=== PATIENT | male | born 1995 | race African-American/Black ===

== ENCOUNTER 2017-04-04 14:36 | Inpatient (IN) | payer OTHER ==
--- NOTE | ~2017-04-04 | DS ---
Unit #: [id number] #: [id number] Patient: [facility] [id number] [address] [place] [address] [id number] I MR#: [id number] NAME: JOHN RAUSCH ROOM: [facility] Age: 21 Sex: M Admission Date: 04/04/2017 : 1995 Discharge Date: 04/08/2017 Attending Physician: Chaz Anaya M.D. Primary Care Physician: Primary Care Physician No DISCHARGE SUMMARY IDENTIFYING DATA Mr. Rausch 21-year old, single, male, who is a resident of [place], [place] and was brought to the hospital by his mother. DISCHARGE DIAGNOSES Psychiatric: Major depressive disorder, recurrent, moderate, without psychotic features; alcohol dependence, moderate. Medical: None. Stressors: Moderate psychosocial stressors. HISTORY OF PRESENT ILLNESS Please see initial psychiatric evaluation for details. PAST PSYCHIATRIC HISTORY Please see initial psychiatric evaluation for details. PAST MEDICAL HISTORY Please see initial psychiatric evaluation for details. HOSPITAL COURSE The patient was admitted to the adult chemical dependency unit at [facility] and was oriented to the hospital environment. Routine p.r.n. medications were initiated and started back on his home medications and detox protocol was initiated. He was taking medications regularly and was tolerating them fairly well and was able to show a decent therapeutic response with improvement in depression and anxiety and as such, it was decided that he will be discharged home and will continue treatment on an outpatient basis. DISCHARGE MEDICATIONS None. DISCHARGE CONDITION Stable. PROGNOSIS Fair. Dictated by... Chaz Anaya M.D. Unit #: [id number] #: [id number] Patient: JOHN RAUSCH IAA/modl TD: 04/08/2017 08:45 JOB #: [id number] DISCHARGE SUMMARY Page 1 of 1 X Chaz Anaya MD X DISCHARGE SUMMARY
--- NOTE | ~2017-04-04 | PN ---
Unit #: [id number] #: [id number] Patient: JOHN HUMMEL [id number] [facility] [address] [place] [address] [id number] I MR#: [id number] NAME: JOHN HUMMEL ROOM: P212 Age: 21 Sex: M Admission Date: 04/04/2017 : 1995 Attending Physician: Chaz Anaya M.D. Admitting Physician: Chaz Anaya M.D. Primary Care Physician: Primary Care Physician Jess IRIZARRY PROGRESS NOTES DATE 04/07/2017 DISCUSSION Mr. Hummel is a 21-year-old, male who was seen today and chart was reviewed and case was discussed with the staff. He has been doing fairly well and appears to be doing better than yesterday and has been showing improvement in mood and attitude and daily functioning as he has been compliant with the treatment recommendations. He has been taking the medication and tolerating them fairly well with no reported side effects. MENTAL STATUS EXAM Young male who was casually dressed with fair personal hygiene, appears to be in no acute distress or discomfort. He was awake and alert on interaction with intact orientation. His mood was anxious with congruent affect. He denies any suicidal or homicidal ideation. His insight and judgement remains slightly impaired. TREATMENT PLAN 1. We will continue him on his current medications and treatment protocol. We will monitor his response to the medication and make further adjustments as needed. 2. We will continue to follow up. Dictated by... Meenu Tirado/celi TD: 04/08/2017 03:42 JOB #: [id number] Unit #: [id number] #: [id number] Patient: JOHN HUMMEL SHANNONDESIREE PROGRESS NOTES Page 1 of 1 X Chaz Anaya MD PROGRESS NOTE
--- NOTE | ~2017-04-04 | HP ---
Unit #: [id number] #: [id number] Patient: NITO HUMMEL [id number] [place] [address] [id number] I MR#: [id number] NAME: NITO HUMMEL ROOM: P202 Age: 21 Sex: M Admission Date: 04/04/2017 : 1995 Attending Physician: Chaz Anaya M.D. Admitting Physician: Chaz Anaya M.D. Primary Care Physician: Primary Care Physician No HISTORY AND PHYSICAL HISTORY OF PRESENT ILLNESS Nito is a 21 year old admitted to [address] [place] [address] because of his continued abuse of alcohol. PAST MEDICAL HISTORY 1. Long history of alcohol abuse. 2. The patient reports history of withdrawal seizures. PAST SURGICAL HISTORY Nothing reported. ALLERGIES Ceclor. SOCIAL HISTORY Smokes one-half pack per day. Denies alcohol on a daily basis and admit history of marijuana use. FAMILY HISTORY Medically noncontributory. REVIEW OF SYSTEMS CONSTITUTIONAL: No fever or chills. HEENT: Denies any sore throat, ear pain or runny nose. CARDIOVASCULAR: Denies chest pain, irregular heart rhythm or palpitations. CHEST: Denies shortness of breath or cough. No hemoptysis. GASTROINTESTINAL: Denies nausea, vomiting, diarrhea or chronic constipation. ENDOCRINE: Denies history of increased thirst or urination. No recent significant weight loss or gain. GENITOURINARY: Denies dysuria, frequency, or hematuria. SKIN: Denies any rashes. HEMATOLOGIC: Denies history of increased bleeding or bruising. MUSCULOSKELETAL: Denies any hot, swollen joints. No generalized muscle pain. NEUROLOGIC: Denies problems with vision or speech. No frequent, severe headaches. No numbness, tingling or weakness in any extremities. Denies loss of bladder or bowel control. CURRENT MEDICATIONS Detox protocol. PHYSICAL EXAMINATION Unit #: [id number] #: [id number] Patient: NITO HUMMEL GENERAL: Alert, well nourished. No apparent distress. VITAL SIGNS: Blood pressure 120/70, heart rate 78, respirations 16, and temperature 98.6. WEIGHT: 160. HEIGHT: 5 feet 7 inches. SKIN: Warm and dry without rash or lesion. HEENT: Normocephalic. TMs not viewed. Oral and nasal passages clear. Conjunctivae clear. PERRLA. EOMs intact. NECK: Supple without lymphadenopathy or thyromegaly. HEART: Regular rate and rhythm without murmur. LUNGS: Clear. ABDOMEN: Soft, nontender. : Not done. EXTREMITIES: No evidence of cyanosis, clubbing or edema. Moves all without focal deficit. NEUROLOGICAL: Grossly within normal limits. Cranial Nerves: II: Visual loving are intact. III, IV AND : Extraocular movements are intact. Pupils are equal, round and reactive to light. V: Facial sensation is grossly normal. VII: Facial movements and expression are normal. VIII: Auditory acuity grossly intact. IX, X: Uvula is midline. Phonation is normal. XI: Patient shrugs shoulders and turns head normally. XII: Tongue protrudes in the midline. Sensory and Motor Function: Sensory and motor sensation is grossly normal. Motor: moves all extremities well. Coordination: Gait is normal. Deep Tendon Reflexes: Intact. IMPRESSION Psychiatric admission. RECOMMENDATIONS PSYCHIATRIC: Per psychiatrist. MEDICAL: I see no contraindications to participate in this facility's activities. MEDICAL PROGNOSIS Good. MEDICAL CONDITION Stable. Dictated by... Yohana Castro P.A.-C. for Meenu Campbell/anurag TD: 04/05/2017 14:57 JOB #: [id number] Unit #: [id number] #: [id number] Patient: NITO HUMMEL HISTORY AND PHYSICAL Page 1 of 1 X Yohana Castro X HISTORY AND PHYSICAL
--- NOTE | ~2017-04-04 | PA ---
Unit #: [id number] #: [id number] Patient: JOHN RAUSCH [id number] [facility] [address] [place] [address] [id number] I MR#: [id number] NAME: JOHN RAUSCH ROOM: P202 Age: 21 Sex: M Admission Date: 04/04/2017 : 1995 Date of Assessment: 04/05/2017 Attending Physician: Chaz Anaya M.D. Admitting Physician: Chaz Anaya M.D. Primary Care Physician: Primary Care Physician No PSYCHIATRIC ASSESSMENT DATE OF SERVICE 04/05/2017. IDENTIFYING DATA Mr. Rausch is a 21-year-old, single, male, who is a resident of [place], [place] and was brought to the hospital accompanied by his mother. CHIEF COMPLAINT "I need to detox off alcohol." HISTORY OF PRESENT ILLNESS Mr. Rausch is a 21-year-old male with a history of alcohol dependence, who is known to me from previous encounters, who was brought to the hospital accompanied by his mother stated that he knows now that going to detox is not enough to help him stay sober and then he has been talking with the [facility]. In order to be admitted to the 28-day program, he will need to detox first and reports last time he tried to detox at home on his own, he had withdrawal seizures and delirium tremens. He wants to go back to his old personality and his drinking has increased his depression to the point that he no longer cares where he lives. He reports increasing depression, anxiety, irritability, restlessness, feelings of hopelessness and helplessness, and suicidal ideations and has a history of suicide attempts in the past and as such, recommendation for inpatient level of care for safety and stabilization was made and he was transferred to us. SUBSTANCE ABUSE HISTORY The patient reports history of alcohol dependence and has been drinking since 12 years old and reports currently has been drinking up to 30 beers and a pint of liquor on a daily basis and denies any other drug abuse. PAST PSYCHIATRIC HISTORY The patient [facility], and review of the medical records indicate that currently he is not active in any treatment program, and is not seeing a psychiatrist, and is not taking any psychotropic medications. PAST MEDICAL HISTORY Asthma. ALLERGIES Unit #: [id number] #: [id number] Patient: JOHN RAUSCH. PERSONAL AND SOCIAL HISTORY A 21-year-old male, who reports that he is single and employed and lives alone and has poor social support system. MENTAL STATUS EXAMINATION Young male, who was casually dressed with fair personal hygiene, appears to be in no acute distress or discomfort. He was awake and alert on interaction with intact orientation to time, place, and person. His mood was anxious and depressed with a congruent affect. His speech was slow and restricted in content. His thought processes were disorganized with some looseness of associations and flight of ideas. His insight and judgment remain significantly impaired. DIAGNOSTIC IMPRESSION Psychiatric: Major depressive disorder, recurrent, moderate, without psychotic features; alcohol dependence, moderate and acute withdrawals. Medical: Asthma. Stressors: Moderate psychosocial stressors. TREATMENT PLAN 1. The patient has presented with a history of alcohol dependence and mood disorder, and has been decompensating and will need inpatient hospitalization for detoxification, safety, and stabilization. We will start him back on his home medications and detox protocol. We will closely monitor for any worsening withdrawal symptoms. 2. Supportive therapy was provided to the patient. ESTIMATED LENGTH OF STAY 5 to 7 days. ABILITY TO HELP SELF Limited. WILLINGNESS TO HELP SELF The patient appears to be willing to help self. STRENGTHS 1. Communicative. 2. Cooperative. PROBLEMS 1. Chronic dysphoric symptoms. 2. Chronic chemical dependency. 3. Poor social support system. DISCHARGE CRITERIA This will be contingent upon the patient's ability to go through detox without having any significant withdrawal symptoms and his ability to stay safe to himself, particularly after discharge from the hospital. Dictated by... Chaz Anaya M.D. Unit #: [id number] #: [id number] Patient: JOHN RAUSCH ANTHONY/modl TD: 04/05/2017 07:59 JOB #: [id number] PSYCHIATRIC ASSESSMENT Page 1 of 1 X Chaz Anaya MD PSYCHIATRIC ASSESSMENT
--- NOTE | ~2017-04-04 | CO ---
Unit #: [id number] #: [id number] Patient: NITO HUMMEL [id number] [place] [address] [id number] I MR#: [id number] NAME: NITO HUMMEL ROOM: [facility] Age: 21 Sex: M Admission Date: 04/04/2017 : 1995 Attending Physician: Chaz Anaya M.D. Primary Care Physician: Primary Care Physician No Consultation Date: 04/07/2017 CONSULTATION REPORT HISTORY OF PRESENT ILLNESS Nito reports tooth pain for the past 3 weeks. He saw a dentist who prescribed penicillin and has plans to surgically remove the tooth. His pain is on the bottom right side of his mouth and does not seem to be getting any better. No fever. No other complaints. PHYSICAL EXAMINATION CARDIAC: Regular rate and rhythm. No murmurs, gallops, or rubs. RESPIRATORY: Clear to auscultation bilaterally. ORAL: Right bottom molar with fracture and exposed nerve. ASSESSMENT AND PLAN Tooth infection with pain. We will restart penicillin 500 p.o. q.8 hours for 7 days and begin ibuprofen 400 mg p.o. q.6 hours p.r.n. pain. The patient will follow up after discharge with dentist. Dictated by..Carlos Coats A.P.R.N. for Meenu Campbell/mor TD: 04/08/2017 00:08 JOB #: [id number] CONSULTATION REPORT Page 1 of 1 X YONATAN YOUNGBLOOD APRN X CONSULTATION REPORT
--- NOTE | ~2017-04-04 | PN ---
Unit #: [id number] #: [id number] Patient: JOHN HUMMEL [id number] [facility] [address] [place] [address] [id number] I MR#: [id number] NAME: JOHN HUMMEL ROOM: P202 Age: 21 Sex: M Admission Date: 04/04/2017 : 1995 Attending Physician: Chaz Anaya M.D. Admitting Physician: Chaz Anaya M.D. Primary Care Physician: Primary Care Physician Jess SANTILLAN NOTES DATE OF SERVICE 04/06/2017 DISCUSSION Mr. Hummel is a 21-year-old male who was seen today. Chart was reviewed and case was discussed with the staff. He has been anxious, withdrawn, and rather seclusive to himself. He has been cooperative with treatment recommendations and has been taking the medications and tolerating them fairly well with no reported side effects. MENTAL STATUS EXAMINATION Young male who is casually dressed with fair personal hygiene, appears to be in no acute distress or discomfort. He was awake and alert on interaction with intact orientation. His mood is anxious with congruent affect. His speech is slow and goal-directed. He denies any suicidal or homicidal ideations and also denies any auditory or visual hallucinations. His insight and judgment remain slightly impaired. TREATMENT PLAN 1. We will continue him on his current medications and treatment protocol. We will monitor his response to the medications and make further adjustments as needed. 2. We will continue to follow up. Dictated by... Meenu Tirado/anurag TD: 04/06/2017 14:50 JOB #: [id number] Unit #: [id number] #: [id number] Patient: JOHN HUMMEL PROGRESS NOTES Page 1 of 1 X Chaz Anaya MD PROGRESS NOTE
[2017-04-05 09:38] LABS: BASOPHIL# 0.1 X10e3 (0-0.3); BASOPHIL% 0.7 % (0-2.5); EOSINOPHIL# 0.3 X10e3 (0-0.7); EOSINOPHIL% 3.5 % (0.0-7.0); HEMATOCRIT 46.6 % (38.0-50.0); HEMOGLOBIN 15.7 gm/dL (13.0-16.0); LYMPHOCYTE# 1.8 X10e3 (1.0-3.5); LYMPHOCYTE% 20.8 % (17.0-45.0); MEAN CELL VOLUME 89.5 FL (83-96); MEAN CORPUSCULAR HEMOGLOBIN 30.2 PG (28-34); MEAN CORPUSCULAR HGB CONC 33.7 g/dL (30-36); MEAN PLATELET VOLUME 9.5 FL (6.5-11.5); MONOCYTE# 0.6 X10e3 (0-1.0); MONOCYTE% 6.8 % (3.0-12.0); NEUTROPHIL% 68.2 % (40-75); PLATELET COUNT 204 X10e3 (140-420); RED BLOOD COUNT 5.21 X10e (3.90-5.60); RED CELL DISTRIBUTION WIDTH 13.6 % (11.0-15.5); WHITE BLOOD COUNT 8.8 X10e3 (4.0-10.5)
[2017-04-05 09:51] LABS: DIFF IND NO
[2017-04-05 09:58] LABS: ALBUMIN SERUM 3.7 g/dL (3.5-5.0); BILIRUBIN,TOTAL 1.3 mg/dL (0.2-2.0); BUN/CREATININE RATIO 7.27; CALCIUM SERUM 9.2 mg/dL (8.4-10.2); CREATININE SERUM 1.1 mg/dL (0.6-1.4); GLOM FILT RATE Estimated 109.1 mL/min (>60); POTASSIUM 3.7 mmol/L (3.5-5.1); PROTEIN TOTAL SERUM 6.1 g/dL (6.0-8.3)
[2017-04-06 09:53] LABS: URINE APPEARANCE CLEAR; URINE BILIRUBIN NEG (NEG); URINE BLOOD NEG (NEG); URINE COLOR YELLOW; URINE GLUCOSE NEG (NEG); URINE KETONE NEG (NEG); URINE LEUKOCYTE ESTERASE NEG (NEG); URINE NITRATE NEG (NEG); URINE PROTEIN NEG (NEG); URINE SPECIFIC GRAVITY 1.004 (1.003-1.035); URINE UROBILINOGEN 0.2 MG/DL (NEG)
[2017-04-06 11:41] LABS: AMPHETAMINE NEG (NEG); BARBITURATES NEG (NEG); BENZODIAZEPINES NEG (NEG); COCAINE NEG (NEG); MARIJUANA NEG (NEG); OPIATES NEG (NEG); TRICYCLIC ANTIDEPRESSANTS NEG (NEG); U METHADONE NEG (NEG)
== END 2017-04-08 10:25 | disposition home or self-care (01) | DRG 885 ==
LOC: P2S 19:50
PROVIDERS: Psychiatry & Neurology Psychiatry
PROC: HZ2ZZZZ Detoxification Services for Substance Abuse Treatment (ICD-10-PCS; principal; 2017-04-04)
DX: F33.1 Major depressive disorder, recurrent, moderate (principal); F10.239 Alcohol dependence with withdrawal, unspecified; J45.909 Unspecified asthma, uncomplicated; F17.210 Nicotine dependence, cigarettes, uncomplicated; K04.7 Periapical abscess without sinus; F41.9 Anxiety disorder, unspecified
CPT/HCPCS: 80053; 80307; 81003; 85025; 86592